=== PATIENT | female | born 1970 | race Caucasian/White ===

== ENCOUNTER 2017-03-10 14:03 | Emergency (ER) | payer MEDICARE, MEDICAID ==
[~2017-03-10] VITALS: Ht 162.6 cm; Wt 124.6 kg
[~2017-03-10 14:03] MED LIST: DIVA500T17 PO; DIVA500T2 PO; HYDR50CA PO; LITH300C PO; ZIPR60CA3 PO; ZIPR80CA3 PO
[2017-03-10 14:04] VITALS: BP 132/85
== END 2017-03-10 16:13 | disposition home or self-care (01) ==
LOC: ED 16:07
DX: S96.912A Strain of unspecified muscle and tendon at ankle and foot level, left foot, initial encounter (principal); Z88.1 Allergy status to other antibiotic agents; X58.XXXA Exposure to other specified factors, initial encounter; Y93.89 Activity, other specified; Y92.89 Other specified places as the place of occurrence of the external cause; Y99.9 Unspecified external cause status
CPT/HCPCS: 99284